=== PATIENT | female | born 1955 | race Caucasian/White ===

== ENCOUNTER 2016-10-27 12:19 | Observation (INO) | payer OTHER ==
[2016-10-27] VITALS (10 sets, daily range): BP systolic 100–135; BP diastolic 59–78; PULSE 57–73; RESP 16–20; TEMP 98–98.7; O2SAT 96–100
[~2016-10-27] VITALS: Ht 162.6 cm; Wt 56.2 kg
[~2016-10-27 12:19] MED LIST: SYNT25TA
[2016-10-27] MEDS ORDERED: CIPR-9 PO (12:40)
[2016-10-27] MEDS ORDERED: LEVO88TA2 PO (12:40)
--- NOTE | 2016-10-27 12:43 | PD ---
HPI Chief Complaint: Chest Pain Time Seen by Provider: 12:31 Travel History International Travel<30 days: No Contact w/Intl Traveler<30days: No Traveled to known affect area: No History of Present Illness HPI The patient was seen and examined in the presence of the nurse. She complains of chest pain. Location is low center sternum. Duration was one hour. It was nonexertional. Severity was moderate. She has no history of cardiac or pulmonary disease. It has resolved spontaneously with no alleviating factors. Currently pain-free. PFSH Past Medical History Thyroid Disease: Yes ?: Not Menopausal: Yes Past Surgical History Eye Surgery: Yes (EYES REMOVED AGE 2 ) Social History Alcohol Use: No Tobacco Use: No Substance Use: No Allergies-Medications (Allergen,Severity, Reaction): Coded Allergies: No Known Allergies (Verified Allergy, Mild, 04/19/07) Reported Meds & Prescriptions Reported Meds & Active Scripts Active Reported Cipro (Ciprofloxacin HCl) 500 Mg Tab 500 Mg PO BID Levothyroxine (Levothyroxine Sodium) 88 Mcg Tab 88 Mcg PO DAILY Review of Systems General / Constitutional: No: Fever Eyes: No: Visual changes HENT: No: Headaches Cardiovascular: Positive: Chest Pain or Discomfort Respiratory: No: Shortness of Breath Gastrointestinal: No: Abdominal Pain Genitourinary: No: Dysuria Musculoskeletal: No: Pain Skin: No Rash Neurologic: No: Weakness Psychiatric: No: Depression Endocrine: No: Polydipsia Hematologic/Lymphatic: No: Easy Bruising Physical Exam Narrative GENERAL: Well-nourished, well-developed patient in no apparent distress. SKIN: Warm and dry. HEAD: Atraumatic. Normocephalic. EYES: Has bilateral prosthetic eyes. Has right sided ptosis. History of retinoblastoma ENT: No nasal bleeding or discharge. Mucous membranes pink and moist. NECK: Trachea midline. No JVD. CARDIOVASCULAR: Regular rate and rhythm. No murmur appreciated. RESPIRATORY: No accessory muscle use. Clear to auscultation. Breath sounds equal bilaterally. GASTROINTESTINAL: Abdomen soft, non-tender, nondistended. Hepatic and splenic margins not palpable. MUSCULOSKELETAL: No obvious deformities. No clubbing. No cyanosis. No edema. NEUROLOGICAL: Awake and alert. No obvious cranial nerve deficits. Motor grossly within normal limits. Normal speech. PSYCHIATRIC: Appropriate mood and affect; insight and judgment normal. Data Data Last Documented VS Vital Signs Date Time Temp Pulse Resp B/P Pulse Ox O2 Delivery O2 Flow Rate FiO2 10/27/16 13:45 65 16 110/66 100 Room Air 10/27/16 12:36 98.7 Orders Electrocardiogram (10/27/16 12:38) Basic Metabolic Panel (Bmp) (10/27/16 12:38) Ckmb (Isoenzyme) Profile (10/27/16 12:38) Complete Blood Count With Diff (10/27/16 12:38) Prothrombin Time / Inr (Pt) (10/27/16 12:38) Act Partial Throm Time (Ptt) (10/27/16 12:38) Troponin I (10/27/16 12:38) Chest, Single Ap (10/27/16 12:38) Ecg Monitoring (10/27/16 12:38) Iv Access Insert/Monitor (10/27/16 12:38) Oximetry (10/27/16 12:38) Aspirin (Aspirin) (10/27/16 12:45) Sodium Chloride 0.9% Flush (Ns Flush) (10/27/16 12:45) CKMB (10/27/16 13:00) CKMB% (10/27/16 13:00) Labs Laboratory Tests Test 10/27/16 10/27/16 13:00 13:28 White Blood Count 5.0 TH/MM3 Red Blood Count 3.58 MIL/MM3 Hemoglobin 10.9 GM/DL Hematocrit 31.7 % Mean Corpuscular Volume 88.5 FL Mean Corpuscular Hemoglobin 30.3 PG Mean Corpuscular Hemoglobin 34.3 % Concent Red Cell Distribution Width 14.0 % Platelet Count 102 TH/MM3 Mean Platelet Volume 9.0 FL Neutrophils (%) (Auto) 75.3 % Lymphocytes (%) (Auto) 15.1 % Monocytes (%) (Auto) 4.2 % Eosinophils (%) (Auto) 2.7 % Basophils (%) (Auto) 2.7 % Neutrophils # (Auto) 3.8 TH/MM3 Lymphocytes # (Auto) 0.8 TH/MM3 Monocytes # (Auto) 0.2 TH/MM3 Eosinophils # (Auto) 0.1 TH/MM3 Basophils # (Auto) 0.1 TH/MM3 CBC Comment DIFF FINAL Differential Comment Sodium Level 142 MEQ/L Potassium Level 3.7 MEQ/L Chloride Level 106 MEQ/L Carbon Dioxide Level 27.8 MEQ/L Anion Gap 8 MEQ/L Blood Urea Nitrogen 12 MG/DL Creatinine 0.73 MG/DL Estimat Glomerular Filtration 81 ML/MIN Rate Random Glucose 107 MG/DL Calcium Level 8.7 MG/DL Total Creatine Kinase 230 U/L Creatine Kinase MB 3.3 NG/ML Creatine Kinase MB % 1.4 % Troponin I LESS THAN 0.02 NG/ML Prothrombin Time 10.7 SEC Prothromb Time International 1.0 RATIO Ratio Activated Partial 24.0 SEC Thromboplast Time MDM Medical Decision Making Medical Screen Exam Complete: Yes Emergency Medical Condition: Yes Medical Record Reviewed: Yes Differential Diagnosis Differential diagnosis includes [place], angina, pericarditis, pleurisy, GERD, anxiety. Narrative Course I have reviewed the patient's electronic medical record. Patient was seen in 2006 for minor complaint but not since IV placed I reviewed the EKG which shows sinus rhythm without ST elevation I reviewed the chest x-ray which is normal Extended cardiac monitoring shows sinus rhythm without ectopy CBC is normal Metabolic profile is normal CK is normal Troponin is normal Coagulation studies are normal workup here is negative. She is going to be a 23 hour observation on telemetry in the chest pain center to rule out cardiac cause of her symptoms. I reviewed with the hospitalist I gave her an aspirin Diagnosis Primary Impression: Chest pain in adult Admitting Information Admitting Physician Requests: Observation Rodriguez Welch MD Oct 27, 2016 12:42
[2016-10-27] MEDS ORDERED: SODIUM CHLORIDE 0.9% FLUSH 5 ML FLUSH IVF PRN ×2 (12:45→14:45)
[2016-10-27] MEDS ORDERED: ASPIRIN 325 MG TAB PO ONE (12:45)
[2016-10-27 13:11] LABS: AUTOMATED NEUTROPHIL # 3.8 TH/MM3 (1.8-7.7); BASOPHIL # 0.1 TH/MM3 (0-0.2); BASOPHIL % 2.7 % (0.0-2.0); EOSINOPHIL # 0.1 TH/MM3 (0-0.4); EOSINOPHIL % 2.7 % (0.0-4.0); HEMATOCRIT 31.7 % (35.0-46.0); HEMO FLAGS DIFF FINAL; LYMPH % 15.1 % (9.0-44.0); LYMPHOCYTE # 0.8 TH/MM3 (1.0-4.8); MEAN CELL VOLUME 88.5 FL (80.0-100.0); MEAN CORPUSCULAR HEMOGLOBIN 30.3 PG (27.0-34.0); MEAN CORPUSCULAR HGB CONC 34.3 % (32.0-36.0); MONO % 4.2 % (0.0-8.0); NEUT % 75.3 % (16.0-70.0); PLATELET COUNT 102 TH/MM3 (150-450); RED BLOOD COUNT 3.58 MIL/MM3 (4.00-5.30)
[2016-10-27 13:18] LABS: CHLORIDE 106 MEQ/L (98-107); POTASSIUM 3.7 MEQ/L (3.5-5.1); SODIUM (NA) 142 MEQ/L (136-145)
[2016-10-27 13:21] LABS: ANION GAP 8 MEQ/L (5-15); BICARBONATE 27.8 MEQ/L (21.0-32.0); BLOOD UREA NITROGEN 12 MG/DL (7-18)
[2016-10-27 13:24] LABS: GLOMERULAR FILTRATION RATE 81 ML/MIN (>89)
[2016-10-27 13:27] LABS: CREATINE KINASE 230 U/L (26-192)
[2016-10-27 13:39] LABS: CKMB 3.3 NG/ML (0.5-3.6)
--- NOTE | 2016-10-27 13:42 | RADHPO ---
EXAM DATE/TIME: 10/27/2016 12:49 [facility] COMPARISON: No previous studies available for comparison. INDICATIONS : Chest pain. MEDICAL HISTORY : None. SURGICAL HISTORY : None. ENCOUNTER: Initial ACUITY: 1 day PAIN SCORE: 8/10 LOCATION: Bilateral chest FINDINGS: A single view of the chest demonstrates the lungs to be symmetrically aerated without evidence of mas s, infiltrate or effusion. The cardiomediastinal contours are unremarkable. Osseous structures are intact. CONCLUSION: No acute disease. Johnny Jimenez MD on October 27, 2016 at 13:41 Board Certified Radiologist. This report was verified electronically.
[2016-10-27 13:46] LABS: PROTHROMBIN TIME - PATIENT 10.7 SEC (9.8-11.6)
[2016-10-27 15:20] LABS: CREATINE KINASE 203 U/L (26-192)
--- NOTE | 2016-10-27 15:20 | HHI.HP ---
[facility] Primary Care Physician Frank Rucker MD Admission Diagnosis chest pain Diagnoses: Chief Complaint: Chest pain History of Present Illness Patient is a 61-year-old female who had atypical presentation of chest discomfort for about an hour. Was nonexertional and located in the epigastrium and after she ate a very large left. Patient is highly active and rolls frequently and also runs frequently with the assistance of others. 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 Patient was quite concerned about epigastric discomfort. He did radiate up into her chest and did not relieve with ambulation or removing her bra which she thought was quite constricting. She did not take any intestinal medication such as Tums or Nexium. She does not get heartburn. She does not not change her diet. Patient has strong family history of cardiac disease including her father and her sister who had premature cardiac events. The patient does not smoke. She is postmenopausal. She was admitted to the chest pain Center for further evaluation of atypical chest discomfort Review of Systems Constitutional: DENIES: Diaphoretic episodes, Fatigue, Fever, Weight gain, Weight loss, Chills, Dizziness, Change in appetite, Night Sweats Endocrine: DENIES: Abnorml menstrual pattern, Heat/cold intolerance, Polydipsia , Polyuria, Polyphagia Eyes: DENIES: Blurred vision, Diplopia, Eye inflammation, Eye pain, Vision loss , Photosensitivity, Double Vision Ears, nose, mouth, throat: DENIES: Tinnitus, Hearing loss, Vertigo, Nasal discharge, Oral lesions, Throat pain, Hoarseness, Ear Pain, Running Nose, Epistaxis, Sinus Pain, Toothache, Odynophagia Respiratory: DENIES: Apneas, Cough, Snoring, Wheezing, Hemoptysis, Sputum production, Shortness of breath Cardiovascular: COMPLAINS OF: Chest pain Gastrointestinal: DENIES: Abdominal pain, Black stools, Bloody stools, Constipation, Diarrhea, Nausea, Vomiting, Difficulty Swallowing, Anorexia Genitourinary: DENIES: Abnormal vaginal bleeding, Dysmenorrhea, Dyspareunia, Sexual dysfunction, Urinary frequency, Urinary incontinence, Urgency, Hematuria , Dysuria, Nocturia, Vaginal discharge Musculoskeletal: DENIES: Joint pain, Muscle aches, Stiffness, Joint Swelling, Back pain, Neck pain Integumentary: DENIES: Abnormal pigmentation, Pruritus, Rash, Nail changes, Breast masses, Breast skin changes, Nipple discharge Hematologic/lymphatic: DENIES: Bruising, Lymphadenopathy Immunologic/allergic: DENIES: Eczema, Urticaria Neurologic: DENIES: Abnormal gait, Headache, Localized weakness, Paresthesias, Seizures, Speech Problems, Tremor, Poor Balance Psychiatric: DENIES: Anxiety, Confusion, Mood changes, Depression, Hallucinations, Agitation, Suicidal Ideation, Homicidal Ideation, Delusions Past Family Social History Past Medical History thyroid disease blind Past Surgical History eyes Reported Medications reviewed in the medical record, recent cipro for ear infection Allergies: Coded Allergies: No Known Allergies (Verified , 04/19/07) Active Ordered Medications Reviewed and the medical record Family History Father had a heart attack in his 50s, sister had a heart attack in her 40s and from heart failure, mother had a heart attack in her 70s Social History No current tobacco or alcohol, highly active female who lives independently with her spouse Physical Exam Vital Signs Vital Signs Date Time Temp Pulse Resp B/P Pulse Ox O2 Delivery O2 Flow Rate FiO2 10/27/16 14:50 73 16 111/59 98 Room Air 10/27/16 13:45 65 16 110/66 100 Room Air 10/27/16 12:45 16 98 Room Air 10/27/16 12:40 97 10/27/16 12:36 98.7 69 16 118/67 97 Physical Exam GENERAL: This is a well-nourished, well-developed patient, in no apparent distress. SKIN: No rashes, ecchymoses or lesions. Cool and dry. HEAD: Atraumatic. Normocephalic. No temporal or scalp tenderness. EYES: bilateral eye prosthesis. Extraocular motions intact. No scleral icterus. No injection or drainage. ENT: Nose without bleeding, purulent drainage or septal hematoma. Throat without erythema, tonsillar hypertrophy or exudate. Uvula midline. Airway patent. NECK: Trachea midline. No JVD or lymphadenopathy. Supple, nontender, no meningeal signs. CARDIOVASCULAR: Regular rate and rhythm without murmurs, gallops, or rubs. RESPIRATORY: Clear to auscultation. Breath sounds equal bilaterally. No wheezes , rales, or rhonchi. GASTROINTESTINAL: Abdomen soft, non-tender, nondistended. No hepato-splenomegaly , or palpable masses. No guarding. MUSCULOSKELETAL: Extremities without clubbing, cyanosis, or edema. No joint tenderness, effusion, or edema noted. No calf tenderness. Negative Homans sign bilaterally. NEUROLOGICAL: Awake and alert. Cranial nerves II through XII intact. Motor and sensory grossly within normal limits. Five out of 5 muscle strength in all muscle groups. Normal speech. Laboratory Laboratory Tests Test 10/27/16 10/27/16 13:00 13:28 White Blood Count 5.0 Red Blood Count 3.58 Hemoglobin 10.9 Hematocrit 31.7 Mean Corpuscular Volume 88.5 Mean Corpuscular Hemoglobin 30.3 Mean Corpuscular Hemoglobin 34.3 Concent Red Cell Distribution Width 14.0 Platelet Count 102 Mean Platelet Volume 9.0 Neutrophils (%) (Auto) 75.3 Lymphocytes (%) (Auto) 15.1 Monocytes (%) (Auto) 4.2 Eosinophils (%) (Auto) 2.7 Basophils (%) (Auto) 2.7 Neutrophils # (Auto) 3.8 Lymphocytes # (Auto) 0.8 Monocytes # (Auto) 0.2 Eosinophils # (Auto) 0.1 Basophils # (Auto) 0.1 CBC Comment DIFF FINAL Differential Comment Sodium Level 142 Potassium Level 3.7 Chloride Level 106 Carbon Dioxide Level 27.8 Anion Gap 8 Blood Urea Nitrogen 12 Creatinine 0.73 Estimat Glomerular Filtration 81 Rate Random Glucose 107 Calcium Level 8.7 Total Creatine Kinase 230 Creatine Kinase MB 3.3 Creatine Kinase MB % 1.4 Troponin I LESS THAN 0.02 Prothrombin Time 10.7 Prothromb Time International 1.0 Ratio Activated Partial 24.0 Thromboplast Time Result Diagram: 10/27/16 1300 10/27/16 1300 Imaging Last Impressions Chest X-Ray 10/27/16 1238 Signed Impressions: Service Date/Time: Thursday, October 27, 2016 12:49 - CONCLUSION: No acute disease. Johnny Jimenez MD Assessment and Plan Problem List: (1) Chest pain in adult ICD Code: R07.9 Status: Acute Plan: risk factor: post menopausal, family history of premature cardiac disease Likley atypical and GI, add PPI Prn meds (2) Ear infection ICD Code: H66.90 Status: Acute Plan: continue cipro 12/08d (3) Thyroid disease ICD Code: E07.9 Status: Acute Plan: cont synthroid (4) Thrombocytopenia ICD Code: D69.6 Status: Acute Plan: etiology unclear, no bleeding observation, outpatient follow up Tracy Briseno MD Oct 27, 2016 15:20
[2016-10-27] MEDS: PANTOPRAZOLE SOD 40 MG DELAYED RELEASE TAB PO SCH (16:18)
[2016-10-27 18:40] LABS: CREATINE KINASE 176 U/L (26-192)
[2016-10-27 18:52] LABS: CKMB 1.9 NG/ML (0.5-3.6)
[2016-10-27] MEDS: SODIUM CHLORIDE 0.9% FLUSH 5 ML FLUSH IVF SCH (21:20)
[2016-10-28] VITALS: BP 107/69; PULSE 56; RESP 18; TEMP 97.2; O2SAT 97
[2016-10-28 08:00] VITALS: BP 122/73; PULSE 62; RESP 18; TEMP 98.1; O2SAT 97
[2016-10-28] MEDS: SODIUM CHLORIDE 0.9% FLUSH 5 ML FLUSH IVF SCH (08:13)
--- NOTE | 2016-10-28 08:55 | HHI.PR ---
Subjective Remarks Patient seen and examined today. Patient denies any recurrent chest pain overnight. Discussed with cardiology who recommended the patient undergo nuclear stress test. Objective Vitals Vital Signs Date Time Temp Pulse Resp B/P Pulse Ox O2 Delivery O2 Flow Rate FiO2 10/28/16 08:00 98.1 62 18 122/73 97 10/28/16 00:00 97.2 56 18 107/69 97 10/27/16 21:00 58 10/27/16 20:38 71 18 98 10/27/16 20:38 71 18 104/62 98 Room Air 10/27/16 20:00 98.0 57 20 135/78 96 10/27/16 19:37 98 10/27/16 19:35 71 18 99 Room Air 21 10/27/16 19:34 71 18 100/69 99 Room Air 10/27/16 16:04 98 21 10/27/16 14:50 73 16 111/59 98 Room Air 10/27/16 13:45 65 16 110/66 100 Room Air 10/27/16 12:45 16 98 Room Air 10/27/16 12:40 97 10/27/16 12:36 98.7 69 16 118/67 97 I/O 10/27/16 10/27/16 10/27/16 10/28/16 10/28/16 10/28/16 07:00 15:00 23:00 07:00 15:00 23:00 Intake Total 480 ml 620 ml Balance 480 ml 620 ml Intake Oral 480 ml 620 ml # Voids 1 3 # Bowel Movements 0 0 Result Diagram: 10/27/16 1300 10/27/16 1300 Objective Remarks GENERAL: Well-developed, well-nourished, in no acute distress. alert and orientated HEENT: Head is normocephalic without any lesions or masses noted. Facial features are symmetric. NECK: Supple without any masses. Trachea midline no deviation. No JVD, CARDIAC: Regular rhythm, regular rate. S1/S2 are heard. No murmurs gallops or rubs. LUNGS: Clear to auscultation bilaterally. No wheeze, rhonchi or rales. No use of accessory muscles on inspiration or expiration. ABDOMEN: Soft, nontender. Nondistended. Bowel sounds heard in all 4 quadrants. No organomegaly or masses. Negative rebound, negative guarding EXTREMITIES: No edema, pulses are equal bilaterally. No cyanosis or clubbing NEUROLOGY: Mood and affect appear appropriate. Cranial nerves II through XII grossly intact. Moving all extremities, speech is clear Urinary Catheter: No Vascular Central Line Catheter: No A/P Assessment and Plan Chest pain Patient ruled out for any acute coronary event with serial cardiac enzymes remain negative. Serial EKG shows sinus rhythm without any changes Nuclear stress test rule out any underlying ischemia. This was discussed with on-call family physician Thrombocytopenia Unknown etiology this time, no signs of active bleeding Patient will require outpatient follow-up Hypothyroidism Continue replacement therapy Ear infection Continue Cipro DVT prevention Low risk, early ambulation Discharge Planning Discharge home in stable condition Activity: Ad justine. Diet: Regular diet Medications per medication reconciliation Follow-up primary medical doctor in one week Attending Statement Last Impressions Myocardial Perfusion Scan Nuc Med 10/28/16 0000 Signed Impressions: Service Date/Time: Friday, October 28, 2016 10:09 - CONCLUSION: Normal examination. RISK CATEGORY: Low (<1%% Annual Mortality Rate) Ian Zambrano MD Chest X-Ray 10/27/16 1238 Signed Impressions: Service Date/Time: Thursday, October 27, 2016 12:49 - CONCLUSION: No acute disease. Johnny Jimenez MD The exam, history, and the medical decision-making described in the above note were completed with my assistance as the dictating practitioner. I attest that I had a [id number] encounter with the patient on the same day, and personally performed all of the history, exam, or medical decision making. I reviewed and agree with the plan.t Discharge plans discussed with patient and spouse who is agreeable. Likely GI related chest discomfort. Rodriguez Zeng Oct 28, 2016 08:54 Tracy Briseno MD Oct 28, 2016 12:05
[2016-10-28] MEDS: PANTOPRAZOLE SOD 40 MG DELAYED RELEASE TAB PO SCH (09:10)
[2016-10-28] MEDS ORDERED: REGADENOSON INJ 0.4 MG/5 ML SYR IV ONE (09:50)
--- NOTE | 2016-10-28 11:32 | RADHPO ---
EXAM DATE/TIME: 10/28/2016 10:09 [facility] COMPARISON: No previous studies available for comparison. INDICATIONS : Substernal chest pain. Angina. DOSE: 25.4 mCi Tc99m Myoview at stress. 8.5 mCi Tc99m Myoview at rest. 0.4 mg Lexiscan STRESS SYMPTOMS: Anxious. EJECTION FRACTION: 70% MEDICAL HISTORY : Hypertension. Thyroid disease. SURGICAL HISTORY : Eyes removed at age 2. ENCOUNTER: Initial ACUITY: 2 days PAIN SCALE: 6/10 LOCATION: Substernal chest TECHNIQUE: The patient underwent pharmacologic stress with infusion of prescribed dose. Continuous ECG tracing was monitored during stress. Gated SPECT imaging was performed after stress and conventional SPECT i maging was performed at rest. The examination was performed on a SPECT/CT scanner, both attenuation and non-corrected datasets were reviewed. FINDINGS: DISTRIBUTION: The maximum perfused segment at stress is in the anterolateral wall. PERFUSION STUDY: The pattern of perfusion at stress is within normal limits. GATED STUDY: There is intact wall motion and thickening without hypokinetic or dyskinetic segments. CONCLUSION: Normal examination. RISK CATEGORY: Low (<1% Annual Mortality Rate) Ian Zambrano MD on October 28, 2016 at 11:30 Board Certified Radiologist. This report was verified electronically.
--- NOTE | 2016-10-28 12:05 | HHI.DCPOC ---
Discharge Care Plan Diagnosis: (1) Chest pain, atypical Goals to Promote Your Health * To prevent worsening of your condition and complications * To maintain your health at the optimal level Directions to Meet Your Goals Take your medications as prescribed Follow your dietary instruction Follow activity as directed Keep your appointments as scheduled Take your immunizations and boosters as scheduled If your symptoms worsen call your PCP, if no PCP go to Urgent Care Center or Emergency Room Smoking is Dangerous to Your Health. Avoid second hand smoke Call the 24-hour hour crisis hotline for domestic abuse at Tracy Briseno MD Oct 28, 2016 12:05
--- NOTE | 2016-10-28 17:00 | TR ---
Date Performed: 10/28/2016 Time Performed: 10:12:11 DOCTOR: Anna Meek DRUG LIST: CLINICAL HISTORY: CHEST PAIN REASON FOR TEST: Chest pain WITH ABNORMAL EKG REASON FOR ENDING: OBSERVATION: CONCLUSION: Lexiscan stress test was performed under standard four minute protocol. Radionuclid e was injected one minute prior to ending the test. No electrocardiographic abormalities were present to suggest ischemia. Nuclear imaging and interpretation are pending. COMMENTS:
--- NOTE | 2016-11-03 13:38 | EKG ---
Date Performed: 10/27/2016 Time Performed: 17:52:42 PTAGE: 61 years EKG: Sinus bradycardia with sinus arrhythmia Normal ECG except for rate PREVIOUS TRACING : 10/27/2016 15.06 DOCTOR: Maxx Oswald Interpretating Date/Time 11/03/2016 13:37:48
--- NOTE | 2016-11-03 13:39 | EKG ---
Date Performed: 10/27/2016 Time Performed: 12:30:04 PTAGE: 61 years EKG: Sinus rhythm Normal ECG NO PREVIOUS TRACING DOCTOR: Maxx Oswald Interpretating Date/Time 11/03/2016 13:38:06
--- NOTE | 2016-11-03 13:39 | EKG ---
Date Performed: 10/27/2016 Time Performed: 15:06:46 PTAGE: 61 years EKG: Sinus rhythm Normal ECG PREVIOUS TRACING : 10/27/2016 12.30 DOCTOR: Maxx Oswald Interpretating Date/Time 11/03/2016 13:37:57
== END 2016-10-28 12:19 | disposition home or self-care (01) ==
LOC: PHED 12:19 → PHEDA 14:15 → PH3B 20:39
PROVIDERS: ADMIT Hospitalist; ATTEND Hospitalist
DX: R07.89 Other chest pain (principal); H66.90 Otitis media, unspecified, unspecified ear; E03.9 Hypothyroidism, unspecified; D69.6 Thrombocytopenia, unspecified; H54.0 Blindness, both eyes; Z90.01 Acquired absence of eye; Z82.49 Family history of ischemic heart disease and other diseases of the circulatory system; R94.31 Abnormal electrocardiogram [ECG] [EKG]
CPT/HCPCS: 71010; 78452; 80048; 82550; 82552; 84484; 85025; 85610; 85730; 93005; 93017; 99285; A9502; G0378; J2785